=== PATIENT | female | born 1980 | race Caucasian/White ===

== ENCOUNTER 2018-03-01 07:43 | Day surgery (SDC) | payer BC ==
[~2018-03-01] VITALS: Ht 170.2 cm; Wt 94.3 kg
[~2018-03-01 07:43] MED LIST: AMIT25 PO; BETA.1TL TOP; BIEST; CYCL10; CYCL10 PO; DULO60 PO; ESOM20 PO; ESTR2 PO; FIBER GUMMIES1 EACH; FLONASE ALLERG9.9 ML; GABA100; GABA300 PO; HYDR1TAB94 PO; IBUP800; KETO120T TOP; LINZESS290 MCG PO; LORA.5 PO; PROM25 PO; Prednisone20 MG PO; Prilosec Otc20 MG; RANI150 PO; STOOL SOFTENER50 MG; SUMA25 PO; TOPI25 PO; VITAMIN B-625 MG; Venlafaxine HCl50 MG PO; WOMEN'S DAILY1 EAC1 PO; ZOLM2.5 PO; ZOLP5 PO; Zofran Odt4 MG SL
[2018-03-01] MEDS ORDERED: GABA100 PO (08:21)
[2018-03-01] MEDS ORDERED: MELATONIN10 M2 PO (08:22)
[2018-03-01] MEDS ORDERED: Prazosin HCl5 MG PO (08:22)
[2018-03-01] MEDS ORDERED: LORA.5 PO (08:22)
== END 2018-03-01 11:18 | disposition home or self-care (01) ==
LOC: ORSCSDS 07:43
PROVIDERS: Otolaryngology
PROC: 09BL7ZZ Excision of Nasal Turbinate, Via Natural or Artificial Opening (ICD-10-PCS; principal; 2018-03-01 09:00)
PROC: 09CM0ZZ Extirpation of Matter from Nasal Septum, Open Approach (ICD-10-PCS; principal; 2018-03-01 09:00)
DX: J34.2 Deviated nasal septum (principal); J34.3 Hypertrophy of nasal turbinates; F41.9 Anxiety disorder, unspecified; Z79.899 Other long term (current) drug therapy
CPT/HCPCS: J0171; J1100; J2250; J2405; J2710; J3010; J7120

== ENCOUNTER → 2018-06-03 | Outpatient (CLI) | payer BC ==
[~2018-06-03] MED LIST changes: +GABA100 PO; +MELATONIN10 M2 PO; +Prazosin HCl5 MG PO
[2018-06-03 17:09] LABS: Candida species (DNA Probe) Negative (NEGATIVE); G. vaginalis (DNA Probe) Positive (NEGATIVE); T. vaginalis (DNA Probe) Negative (NEGATIVE)
== END ==
LOC: LAB SHORT 15:30 → LAB 15:30
PROVIDERS: Physician Assistant
DX: N89.8 Other specified noninflammatory disorders of vagina (principal)
CPT/HCPCS: 87480; 87510; 87660

== ENCOUNTER 2018-06-24 11:16 | Observation (INO) | payer BC ==
[~2018-06-24] VITALS: Ht 170.2 cm; Wt 97.5 kg
[2018-06-24 11:43] LABS: BASOPHILS ABSOLUTE AUTO 0.03 K/mm3 (0.00-0.23); BASOPHILS PERCENT AUTO 1 % (0-2); EOSINOPHILS ABSOLUTE AUTO 0.14 K/mm3 (0.00-0.68); EOSINOPHILS PERCENT AUTO 3 % (0-6); Hematocrit 39.4 % (33.0-51.0); Hemoglobin 12.9 g/dL (11.5-16.0); IMMATURE GRAN ABSOLUTE AUTO 0.01 K/mm3 (0.00-0.10); IMMATURE GRAN PERCENT AUTO 0 % (0-1); LYMPHOCYTES ABSOLUTE AUTO 2.08 K/mm3 (0.84-5.20); LYMPHOCYTES PERCENT AUTO 42 % (21-46); MONOCYTES ABSOLUTE AUTO 0.36 K/mm3 (0.16-1.47); MONOCYTES PERCENT AUTO 7 % (4-13); Mean Corpuscular HGB Conc 32.7 g/dL (31.5-36.5); Mean Corpuscular Volume 95 fL (80-100); Mean Platelet Volume 9.9 fL (9.1-12.4); NEUTROPHILS ABSOLUTE AUTO 2.35 K/mm3 (1.96-9.15); NEUTROPHILS PERCENT AUTO 47 % (41-73); Platelet Count 271 K/mm3 (150-400); RDW Coefficient Variation 12.6 % (11.7-14.2); RDW Standard Deviation 43.8 fL (35.1-46.3); Red Blood Cell Count 4.16 M/mm3 (3.80-5.20); White Blood Cell Count 4.97 K/mm3 (4.00-11.30)
[2018-06-24] MEDS ORDERED: KETO15TC (11:45)
[2018-06-24] MEDS ORDERED: ESOM20 (11:45)
[2018-06-24] MEDS ORDERED: Fluoxetine HCl20 M1 PO (11:45)
[2018-06-24] MEDS ORDERED: DIAZ5 PO (11:45)
[2018-06-24 11:56] LABS: Alanine Aminotransfer (ALT/SGP 27 U/L (12-78); Albumin, Blood 4.1 g/dL (3.4-5.0); Albumin/Globulin Ratio 1.2 (0.8-1.8); Alk Phos 76 U/L (50-136); Anion Gap 7 mmol/L (6-16); Aspartate Aminotrans (AST/SGOT 15 U/L (12-37); Bilirubin, Total 0.3 mg/dL (0.1-1.0); Blood Urea Nitrogen 15 mg/dL (8-24); Bun/Creatinine Ratio 17.4 (12.0-20.0); CO2, Blood 26 mmol/L (21-32); Calcium, Blood 9.2 mg/dL (8.5-10.1); Chloride, Blood 107 mmol/L (98-108); Creatinine, Blood 0.86 mg/dL (0.40-1.00); Ethanol (Alcohol), Blood, Med <3 mg/dL; Globulin, Blood 3.3 g/dL (2.2-4.0); Glomerular Filtration Rate >60 (60-); Glucose, Blood 104 mg/dL (70-99); International Normalized Ratio 0.98; Potassium, Blood 3.9 mmol/L (3.5-5.5); Prothrombin Time Results 10.1 Sec (9.7-11.5); Sodium, Blood 140 mmol/L (136-145); Total Protein, Blood 7.4 g/dL (6.4-8.2)
[2018-06-24 18:20] LABS: Source, Urine Clean Catch
[2018-06-24 18:32] LABS: Appearance, Urine Clear (Clear); Bilirubin, Urine Neg (Neg); Blood, Urine Neg (Neg); Color, Urine Yellow (P-Yellow); Glucose Qualitative, Urine Neg (Neg); Ketones, Urine 2+ (Neg); Leukocyte Esterase, Urine 1+ (Neg); Nitrite, Urine Neg (Neg); Protein, Urine Neg (Neg); Specific Gravity, Urine 1.015 (1.003-1.022); Urobilinogen, Urine NORM (Normal)
[2018-06-24 18:32] LABS: U Amphetamine Screen DETECTED; U Barbituate Screen Not Detected; U Benzodiazapine Screen DETECTED; U Buprenorphine Screen Not Detected; U Cannabinoids Screen Not Detected; U Cocaine Screen Not Detected; U Methadone Screen Not Detected; U Methamphetamine Screen Not Detected; U Opiates Screen Not Detected; U Oxycodone Screen Not Detected; U Phencyclidine Screen Not Detected; U Propoxyphene Screen Not Detected
[2018-06-24 18:42] LABS: Red Blood Cells, Urine 0-2 /hpf (0-2); White Blood Cells, Urine 0-2 /hpf (0-5)
[2018-06-24 18:43] LABS: Bacteria Few /hpf; Mucus Light (0-Heavy); Squamous Epithelial Cells Mod /hpf (Few)
== END 2018-06-25 16:00 | disposition home or self-care (01) ==
LOC: ER 11:16 → EOR 11:17
PROVIDERS: Emergency Medicine; Physician Assistant
DX: T42.4X2A Poisoning by benzodiazepines, intentional self-harm, initial encounter (principal); F32.9 Major depressive disorder, single episode, unspecified; F43.25 Adjustment disorder with mixed disturbance of emotions and conduct; F41.9 Anxiety disorder, unspecified; L40.50 Arthropathic psoriasis, unspecified; M45.9 Ankylosing spondylitis of unspecified sites in spine
CPT/HCPCS: 36415; 80053; 81001; 85025; 85610; 87086; 93005; 93010; 96360; 96361; 99285-25; G0378; G0480; J7030; Q3014

== ENCOUNTER → 2019-01-31 | Outpatient (CLI) | payer BC, OTHER ==
[~2019-01-31] MED LIST changes: +DIAZ5 PO; +ESOM20; +Fluoxetine HCl20 M1 PO; +KETO15TC
== END ==
LOC: LAB 17:20 → LAB SHORT 17:20
DX: N89.8 Other specified noninflammatory disorders of vagina (principal)
CPT/HCPCS: 87070; 87205

== ENCOUNTER → 2019-03-03 | Outpatient (CLI) | payer OTHER | END | disposition home or self-care (01) | LOC: LAB SHORT 14:03 → LAB EV 14:03 | DX: N39.0 Urinary tract infection, site not specified (principal) | CPT/HCPCS: 87077; 87086; 87147; 87186 ==

== ENCOUNTER → 2019-08-01 | Outpatient (CLI) | payer OTHER ==
[2019-08-02 11:55] LABS: Candida species (DNA Probe) Negative (NEGATIVE); G. vaginalis (DNA Probe) Positive (NEGATIVE); T. vaginalis (DNA Probe) Negative (NEGATIVE)
== END ==
LOC: LAB SHORT 08:50 → LAB EV 08:50
PROVIDERS: Nurse Practitioner Family
DX: N89.8 Other specified noninflammatory disorders of vagina (principal)
CPT/HCPCS: 87480; 87510; 87660

== ENCOUNTER → 2019-11-12 | Outpatient (CLI) | payer OTHER ==
[2019-11-13 11:34] LABS: Candida species (DNA Probe) Negative (NEGATIVE); G. vaginalis (DNA Probe) Negative (NEGATIVE); T. vaginalis (DNA Probe) Negative (NEGATIVE)
== END ==
LOC: LAB SHORT 09:00 → LAB EV 09:00
PROVIDERS: Nurse Practitioner Family
DX: N76.0 Acute vaginitis (principal)
CPT/HCPCS: 87480; 87510; 87660

== ENCOUNTER → 2020-01-02 | Outpatient (CLI) | payer OTHER ==
[2020-01-04 01:08] LABS: CHLAMYDIA TRACHOMATIS, NAA Negative (Negative); NEISSERIA GONORRHOEAE, NAA Negative (Negative)
== END | disposition home or self-care (01) ==
LOC: LAB SHORT 11:21 → LAB EV 11:21
PROVIDERS: Physician Assistant
DX: A74.9 Chlamydial infection, unspecified (principal)
CPT/HCPCS: 87491; 87591

== ENCOUNTER → 2020-01-27 | Outpatient (CLI) | payer OTHER ==
[2020-01-28 14:24] LABS: Adenovirus F 40/41 Not Detected (NOT DETECT); Astrovirus Not Detected (NOT DETECT); Campylobacter Sp Not Detected (NOT DETECT); Cryptosporidium Not Detected (NOT DETECT); Cyclospora Cayetanensis Not Detected (NOT DETECT); E. Coli O157 Not Detected (NOT DETECT); Entamoeba Histolytica Not Detected (NOT DETECT); Enteroaggregative E. coli-EAEC Not Detected (NOT DETECT); Enteropathogenic E. coli-EPEC Not Detected (NOT DETECT); Enterotoxigenic E. coli-ETEC Not Detected (NOT DETECT); Giardia Lamblia Not Detected (NOT DETECT); Norovirus GI/GII Not Detected (NOT DETECT); Plesiomonas Shigelloides Not Detected (NOT DETECT); Rotavirus A Not Detected (NOT DETECT); Salmonella Sp Not Detected (NOT DETECT); Sapovirus Not Detected (NOT DETECT); Shiga Toxin-prod E. coli-STEC Not Detected (NOT DETECT); Shigella/Enteroin E. coli-EIEC Not Detected (NOT DETECT); Vibrio Cholerae Not Detected (NOT DETECT); Vibrio Sp Not Detected (NOT DETECT); Yersinia Enterocolitica Not Detected (NOT DETECT)
== END ==
LOC: LAB EV 09:20 → EDSTATUS 09:37
PROVIDERS: Nurse Practitioner Family
DX: A06.1 Chronic intestinal amebiasis (principal)
CPT/HCPCS: 0097U; 87338

== ENCOUNTER → 2020-07-16 | Outpatient (CLI) | payer OTHER ==
[~2020-07-16] MED LIST changes: +BIEST PO; +METO50ER PO; +OMEP20ER PO; +Prozac20 MG PO; +ZOFRAN4 MG PO; +ZOLP12.5 PO
[2020-07-17 16:16] LABS: CORNONAVIRUS (COVID19) CSH-NRL Negative (Negative)
== END | disposition home or self-care (01) ==
LOC: LAB SHORT 08:45 → LAB EV 08:45
PROVIDERS: Physician Assistant
DX: J06.9 Acute upper respiratory infection, unspecified (principal); Z20.828 Contact with and (suspected) exposure to other viral communicable diseases
CPT/HCPCS: U0003